=== PATIENT | male | born 1985 | race Caucasian/White ===

== ENCOUNTER 2022-02-28 11:55 | Outpatient (CLI) | payer BC, SELFPAY ==
[2022-02-28 17:48] LABS: Albumin* 4.3 g/dL (3.3-5.0)
[2022-02-28 17:51] LABS: Alanine Aminotransferase* 24 U/L (4-50); Alkaline Phosphatase* 49 U/L (40-150); Aspartate Amino Transferase* 29 U/L (12-35); Bilirubin Direct* 0.3 mg/dL (0.0-0.5); Total Protein* 7.1 g/dL (6.0-8.3)
[2022-02-28 19:17] LABS: SARS PCR* Negative SARS-CoV-2 (Negative)
== END 2022-02-28 11:56 | disposition home or self-care (01) ==
PROVIDERS: PCP Family Medicine; Visit Provider Family Medicine
DX: Z20.822 Contact with and (suspected) exposure to COVID-19 (principal); R50.9 Fever, unspecified
CPT/HCPCS: 80076; 87635

== ENCOUNTER 2024-01-20 08:20 | Outpatient (CLI) | payer BC, SELFPAY ==
--- OUTSIDE RECORDS SUMMARY | 2024-01-22 06:10 | XMS_ITS | Clinical Summary ---
Author Organization [facility] Address [place], [place] [address] Care Team Providers Care Brine Purifier Name Role Phone Pcp, No Primary Care Provider Unavailabl e Allergies No known active allergies Medications Medication Sig Dispensed Refills Start Date End Date Status buPROPion (WELLBUTRIN) 75 mg tablet Take 1 tablet by mouth 2 times daily. 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 Pulse 80 07/28/2012 3:23 PM PET SUPPLIES SALESPERSON Temperature - - Respiratory Rate - - Oxygen Saturation - - Inhaled Oxygen Concentration - - Weight 88.5 kg (195 lb) 07/28/2012 3:23 PM PET SUPPLIES SALESPERSON Height - - Body Mass Index - - Plan of Treatment Health Maintenance Due Date Last Done Comments Tdap 1995 Depression screening for age 12+ 1996 HIV for age 15-65 1999 BMI (ht and wt on same day) for age 18+ 2002 Hepatitis C screening for ag e 18-79 2002 Tetanus booster 2004 Lipids for age 35-44 2019 COVID-19 vaccine series (2022- season) 2023 Influenza for age 9-49 03/29/2024 Pneumococcal series for age 6-64 Aged Out No longer eligible based on patient's age to complete this topic Care Teams Brine Purifier Relationship Specialty Start Date End Date Pcp, No . PCP - General 07/14/12
== END 2024-01-20 08:21 | disposition home or self-care (01) ==
LOC: NFLDREF 01-22 06:09
PROVIDERS: PCP Family Medicine; Referring Provider Family Medicine; Visit Provider Family Medicine
DX: E78.5 Hyperlipidemia, unspecified (principal)
CPT/HCPCS: 80053; 80061

== ENCOUNTER 2024-01-22 08:10 | Outpatient (CLI) | payer BC, SELFPAY ==
--- OUTSIDE RECORDS SUMMARY | 2024-01-22 08:16 | XMS_ITS | Clinical Summary ---
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 PCP - General 07/14/12
== END 2024-01-22 08:11 | disposition home or self-care (01) ==
PROVIDERS: PCP Family Medicine; Visit Provider Family Medicine
DX: Z00.00 Encounter for general adult medical examination without abnormal findings (principal); R10.9 Unspecified abdominal pain
CPT/HCPCS: 83516; 84443; 86140

== ENCOUNTER 2024-10-12 09:15 | Outpatient (RCR) | payer BC, SELFPAY | END 2024-11-19 13:48 | disposition home or self-care (01) | PROVIDERS: PCP Family Medicine; Visit Provider Orthopaedic Surgery | DX: M75.51 Bursitis of right shoulder (principal); M25.551 Pain in right hip; Z51.89 Encounter for other specified aftercare | CPT/HCPCS: 97110; 97112; 97140; 97161 ==

== ENCOUNTER 2025-07-12 13:53 | Outpatient (CLI) | payer BC, SELFPAY | END 2025-07-12 13:54 | disposition home or self-care (01) | PROVIDERS: PCP Family Medicine; Visit Provider Family Medicine | DX: R10.9 Unspecified abdominal pain (principal) | CPT/HCPCS: 80053; 86140 ==

== ENCOUNTER 2025-07-20 07:26 | Outpatient (CLI) | payer BC, SELFPAY ==
--- NOTE | 2025-07-20 08:00 | CRLHL7_ITS ---
For Patients: As a result of the Century Cures Act, medical imaging exams and procedure reports are released immediately into your electronic medical record. You may view this report before your referring provider. If you have questions, please contact your health care provider. INDICATION: LEFT SIDED ABD PAIN ON AND OFF X 1 YEAR. GETTING WORSE TECHNIQUE: CT abdomen and pelvis acquired with 104 mL Isovue 370 IV contrast. COMPARISON: None available. FINDINGS: Suboptimal study secondary to presence of mild motion artifact. Liver: No suspicious focal hepatic lesion. Gallbladder and bile ducts: Unremarkable. Pancreas: Unremarkable. Spleen: Unremarkable. Adrenal glands: Unremarkable. Kidneys: Kidneys enhance symmetrically, without hydronephrosis. Too small to characterize hypodense bilateral renal lesions. Retroperitoneum: No lymphadenopathy. Bowel and mesentery: Bowel is not obstructed. No significant ascites. Normal appendix. Long segment mild wall thickening of the descending and proximal sigmoid colon, compatible with mild colitis. Scattered colonic diverticulosis, without evidence of acute diverticulitis. Extensive fecalization of the distal ileum, compatible with slow bowel transit. Bladder: Unremarkable for degree of distention. Reproductive organs: No significant prostatomegaly. Pelvic lymph nodes: No lymphadenopathy. Vessels: Unremarkable. Abdominal wall: No acute abdominal wall abnormality. Bones: Mild multilevel degenerative changes of the spine. No suspicious/aggressive focal osseous lesion. Lower chest: No focal consolidation. IMPRESSION: 1. Mild colitis involving the descending and proximal sigmoid colon. 2. Extensive fecalization of the distal ileum, compatible with slow bowel transit. 3. Scattered colonic diverticulosis, without evidence of acute diverticulitis. Please note that all CT scans at this facility use dose modulation, iterative reconstruction, and/or weight-based dosing when appropriate to reduce radiation dose to as low as reasonably achievable. Dictated by Adam Meadows MD @ 07/20/2025 9:07:22 PM (Electronically Signed)
== END 2025-07-20 07:27 | disposition home or self-care (01) ==
LOC: CT 07:27
PROVIDERS: PCP Family Medicine; Visit Provider Family Medicine
DX: R10.9 Unspecified abdominal pain (principal); K52.9 Noninfective gastroenteritis and colitis, unspecified; K57.30 Diverticulosis of large intestine without perforation or abscess without bleeding
CPT/HCPCS: 74177; Q9967